=== PATIENT | male | born 1975 | race Caucasian/White ===

== ENCOUNTER 2024-07-09 10:55 | Emergency (ER) | payer SELFPAY ==
[2024-07-09 11:04] VITALS: BP 125/61; BMI 50.6
--- NOTE | 2024-07-09 12:43 | ED.GENMED ---
History of Present Illness
General
Chief Complaint: Skin Surface Trauma
Source: patient
Time Seen by Provider: 07/09/24 12:34
History of Present Illness
History of Present Illness:
49-year-old male with past medical history of atrial fibrillation, hypertension, diabetes presenting to the emergency department for evaluation after he was at work where he works at [employer] [facility] and excellently sustained a cut
on his left forearm from a piece of rusted metal. Patient was recommended to come to the ER for tetanus booster. No other injuries were sustained.
Past History
Past History
ED Past Medical History: Arrthythmia, HTN, IDDM and Other (Sleep apnea)
ED Past Surgical History: Appendectomy and Cardiac
Social History
Tobacco: Non-smoker
Alcohol: Occasional
Drug: None
Personal:
Living: with family
Employment: Employed
Family History
Family History: Diabetes and CAD
Review of Systems
Review of Systems
All Other Systems: ROS reviewed and negative except as documented in HPI and ROS
Phy Exam
Physical Exam
Physical Exam:
GENERAL: Alert , in no apparent distress
EYE: conjunctiva clear
Head: Normocephalic atraumatic
NECK: Supple,
ENT: mmm.
LUNGS: no acute respiratory distress
NEUROLOGICAL: Alert and oriented
SKIN: Warm and dry, abrasion to the dorsal left forearm measures less than 5 mm in size. No active bleeding
MUSCULOSKELETAL: well perfused.
PSYCH: Normal and appropriate interaction.
Scores
Heart Failure Risk
Heart Failure Risk Score: Not Applicable
Heart Score for Chest Pain Patients
STEMI patient?: Not applicable
Withdrawal Assessment of Alcohol
Withdrawal Assessment Completed?: Not applicable
Course
Orders/Labs/Results
Orders:
Orders
07/09/24 12:35
Tetanus/Diphth/Acelpertussis [Adacel] 0.5 ml IM .ONCE ONE
Vital Signs
Initial and Last Documented VS:
Initial Vital Signs
Temp Pulse Resp BP Pulse Ox
98.0 F 80 18 125/61 98
07/09/24 11:04 07/09/24 11:04 07/09/24 11:04 07/09/24 11:04 07/09/24 11:04
Last Documented Vital Signs
Temp Pulse Resp BP Pulse Ox
98.0 F 80 18 125/61 98
07/09/24 11:04 07/09/24 11:04 07/09/24 11:04 07/09/24 11:04 07/09/24 11:04
MDM/Problems Addressed
MDM/Problems Addressed:
49-year-old male presenting the ER for evaluation of abrasion sustained to the dorsal left forearm from jd piece of metal. Will update patient's tetanus which is what he came to the emergency department for. Patient is otherwise without any
emergent pathologies and stable for discharge.
*Pulse Oximetry
Patient hypoxic: no
*Critical Care Note
Total Time (30-74mins, 75-104mins- exclusive of procedures): Not Applicable
ED Attending Note
-
Portions of this chart may have been created with voice recognition software.� Occasional wrong word or��sound alike� substitutions may have occurred due to the inherent limitations of voice recognition software.
Discharge Plan
Departure
Patient Disposition: Home (Routine Discharge)
Date of Disposition: 07/09/24
Time of Disposition: 12:43
Patient with high blood pressure during this ER visit?: No
Discharge Problem:
Abrasion of forearm, left, Need for [id number] (Tdap) vaccine
Instructions: Wound Care (DC)
Prescriptions:
No Action
carvedilol 25 mg Tablet
50 mg PO BID
Patient Comments:
04/05/22: Pt confirmed he is taking carvedilol 25mg po four times daily
digoxin 250 mcg (0.25 mg) Tablet
250 mcg PO DAILY
levothyroxine 25 mcg Tablet
25 mcg PO DAILY@07
metformin 1,000 mg Tablet
1,000 mg PO BID@
diltiazem HCl 120 mg Tablet Extended Release 24 Hr
120 mg PO DAILY
rivaroxaban 20 mg Tablet
20 mg PO HS
insulin degludec [Tresiba FlexTouch U-100] 100 unit/mL (3 mL) Insulin Pen
25 unit SC HS
Ozempic 0.25 mg or 0.5 mg (2 mg/3 mL) Pen Injector
0.25 mg SC WEEKLY
Rx Instructions:
Monday
Regranex 0.01 % Gel
1 applic TOPICAL DAILY
Rx Instructions:
Left great toe.
Stand Alone Forms: Return to Work
Interventions
Interventions:
*Risk Screen - Suicide Last Done: 07/09/24 11:04
*Neglect/Abuse Screening Last Done: 07/09/24 11:07
Discharge Date and Time
Print Language: KOREAN
[2024-07-09] MEDS: ADACEL 0.5 ML IM (12:59)
== END 2024-07-09 13:22 | disposition home or self-care (01) ==
LOC: EMR 10:55
PROVIDERS: EMERGENCY PHYSICIAN Emergency Medicine; FAMILY PHYSICIAN Nurse Practitioner Family
DX: S50.812A Abrasion of left forearm, initial encounter (principal); W26.8XXA Contact with other sharp object(s), not elsewhere classified, initial encounter; Y99.0 Civilian activity done for income or pay; I48.91 Unspecified atrial fibrillation; I10 Essential (primary) hypertension; E11.9 Type 2 diabetes mellitus without complications; Z23 Encounter for immunization
CPT/HCPCS: 90471; 99282; 90715

== ENCOUNTER 2025-01-22 19:50 | Emergency (ER) | payer OTHER, SELFPAY ==
[2025-01-22 19:52] VITALS: BP 146/85
[2025-01-22 20:11] LABS: Hematocrit 38.7 % (39.0-52.0); Hemoglobin 12.6 g/dL (13.0-18.0); Mean Corp Hgb Conc. 32.6 g/dL (33.0-37.0); Mean Corpuscular Volume 88.6 fL (80.0-94.0); Nucleated Red Blood Cells % 0 % (-); Platelet Count 182 10^3/uL (130-400); Red Cell Dist. Width 13.1 % (11.5-14.5)
[2025-01-22 20:33] LABS: ALT (SGPT) 27 U/L (0-50); AST (SGOT) 23 U/L (17-59); Albumin 4.0 g/dl (3.5-5.0); Alkaline Phosphatase 75 U/L (38-126); Blood Urea Nitrogen 22 mg/dl (9-20); Calcium 9.2 mg/dl (8.4-10.2); Carbon Dioxide 23 mmol/L (22-30); Chloride 105 mmol/L (98-107); Glucose 290 mg/dl (70-99); Potassium 4.4 mmol/L (3.5-5.1); Sodium 134 mmol/L (135-145); Total Protein 6.8 g/dl (6.3-8.2); eGFR > 60.00
[2025-01-22 22:00] VITALS: BP 156/102
[2025-01-22] MEDS: CLEOCIN 450 MG PO (23:40)
--- NOTE | 2025-01-23 00:18 | ED.GENMED ---
History of Present Illness
General
Chief Complaint: Extremity Pain (non-traumatic)
Source: patient
Exam Limitations: none
Time Seen by Provider: 01/22/25 22:43
Nursing documentation reviewed up to this point in time: agreed with
History of Present Illness
History of Present Illness:
Patient to ED with complaint of draining wouods to RLE. States he has an appointment scheduled in 2 weeks wit the wound center but reports he is noticing some redness and increased drainage. Has small ulceraton to right heel and right álvarez. No
fever/chills. Brought self to ED for eval.
Past History
Past History
ED Past Medical History: Arrthythmia, HTN, IDDM and Other (Sleep apnea)
ED Past Surgical History: Appendectomy and Cardiac
Social History
Tobacco: Non-smoker
Alcohol: Occasional
Drug: None
Personal:
Living: with family
Employment: Employed
Family History
Family History: Diabetes and CAD
Review of Systems
Review of Systems
Allergies reviewed?: Yes
All Other Systems: ROS reviewed and negative except as documented in HPI and ROS
Constitutional: Reports no symptoms
EENT: Reports no symptoms
Respiratory: Reports no symptoms
Cardiac: Reports no symptoms
ABD/GI: Reports no symptoms
Musculoskeletal: Reports other (rLE neurovasc intact)
Skin: Reports other (1cm superficial ulceration right medial heel, 1.5cm ulceration right álvarez. Both draining small amt of clear fluid, culture obtained. Minimal surrounding erythema.)
Neurological: Reports no symptoms
Psychiatric: Reports no symptoms
Phy Exam
General Physical Exam
General Presentation: well appearing and no apparent distress
General age: appears stated age
General Skin: warm and dry
General Habitus: normal
General Mental: alert
Musculoskeletal Exam
Musculoskeletal Exam: full ROM and neuro vasc intact
Skin Exam
Skin Exam: normal color, warm/dry and other (1cm superficial ulceration right medial heel, 1.5cm ulceration right álvarez. minimal surrouonding erythema. No discomfort. )
Psychiatric Exam
Psychiatric Exam: normal mood/affect
Course
Orders/Labs/Results
Orders:
Orders
01/22/25 20:03
Complete Blood Count/With Diff Urgent
Comprehensive Metabolic Panel Urgent
01/22/25 23:08
Clindamycin HCl [Cleocin] 450 mg PO NOW STA
01/22/25 23:45
Wound Culture [Wound/Abscess/Other Culture] Urgent
MATT Source: Heel
Specimen Description: Right
Date Specimen was Collected: 01/22/25
Time Specimen was Collected: 23:21
Wound Culture [Wound/Abscess/Other Culture] Urgent
MATT Source: Leg
Specimen Description: Right
Date Specimen was Collected: 01/22/25
Time Specimen was Collected: 23:22
Abnormal Lab Results
01/22/25
20:03
RBC 4.37 L 10^6/uL
(4.70-6.10)
Hgb 12.6 L g/dL
(13.0-18.0)
Hct 38.7 L %
(39.0-52.0)
MCHC 32.6 L g/dL
(33.0-37.0)
MPV 12.2 H fL
(7.4-10.4)
Absolute Monos (auto) 1.0 H 10^3/uL
(0.1-0.6)
Monocytes % 10.2 H %
(1.7-9.3)
Sodium 134 L mmol/L
(135-145)
BUN 22 H mg/dl
(9-20)
Glucose 290 H mg/dl
(70-99)
01/22/25 20:03
01/22/25 20:03
Vital Signs
Initial and Last Documented VS:
Initial Vital Signs
Temp Pulse Resp BP Pulse Ox
98.7 F 76 18 146/85 97
01/22/25 19:52 01/22/25 19:52 01/22/25 19:52 01/22/25 19:52 01/22/25 19:52
Last Documented Vital Signs
Temp Pulse Resp BP Pulse Ox
98.5 F 72 20 156/102 97
01/22/25 22:00 01/22/25 22:00 01/22/25 22:00 01/22/25 22:00 01/23/25 00:20
*Pulse Oximetry
SaO2: 97
Oxygen Mode of Delivery: Room air
Patient hypoxic: no
*Critical Care Note
Total Time (30-74mins, 75-104mins- exclusive of procedures): Not Applicable
Update Note
Update Note:
Patient to ED after noticing increasing drainage to right heel and álvarez ulcers. Draining small amt of clear fluid. Culutre obtaine. He denies pain. RLE neurovasc. intact. Mild surrounding erythema. He has not been on antibiotics for this
wouonds. Has appt with wound center in [address] on clindamyin, first dose given in ED. He will call wound center in AM to move up appt. He is afebrile and stable for discharge. He was given instructions on s/s to return to ED and he is
agreeable to plan.
ED Attending Note
-
Portions of this chart may have been created with voice recognition software.� Occasional wrong word or��sound alike� substitutions may have occurred due to the inherent limitations of voice recognition software.
Discharge Plan
Departure
Patient Disposition: Home (Routine Discharge)
Date of Disposition: 01/22/25
Time of Disposition: 23:09
Patient with high blood pressure during this ER visit?: No
Condition: Good
Covid-19: Not Applicable
Discharge Problem:
Cellulitis of leg
Instructions: Wound Care (DC), Cellulitis (Skin Infection), Adult (DC)
Prescriptions:
New
clindamycin HCl [Cleocin HCl] 150 mg capsule
450 mg PO Q8H 10 Days Qty: 90 0RF
No Action
carvedilol 25 mg Tablet
50 mg PO BID
Patient Comments:
04/05/22: Pt confirmed he is taking carvedilol 25mg po four times daily
digoxin 250 mcg (0.25 mg) Tablet
250 mcg PO DAILY
levothyroxine 25 mcg Tablet
25 mcg PO DAILY@07
metformin 1,000 mg Tablet
1,000 mg PO BID@
diltiazem HCl 120 mg Tablet Extended Release 24 Hr
120 mg PO DAILY
rivaroxaban 20 mg Tablet
20 mg PO HS
insulin degludec [Tresiba FlexTouch U-100] 100 unit/mL (3 mL) Insulin Pen
25 unit SC HS
Ozempic 0.25 mg or 0.5 mg (2 mg/3 mL) Pen Injector
0.25 mg SC WEEKLY
Rx Instructions:
Monday
Regranex 0.01 % Gel
1 applic TOPICAL DAILY
Rx Instructions:
Left great toe.
Referrals:
W[facility] Center [Outside] - Call in 1-3 days for appt
Activity Restrictions/Additional Instructions:
return to the emergency department immediately for any changes in/worsening of your symptoms
Interventions
Interventions:
*Risk Screen - Suicide Last Done: 01/22/25 19:52
*General Assessment Last Done: 01/22/25 19:52
*Neglect/Abuse Screening Last Done: 01/22/25 23:50
*ED- Fall Risk Assessment Last Done: 01/22/25 23:50
*ED COVID-19 Vaccine History Last Done: 01/22/25 23:50
*Nursing Disposition Last Done: 01/22/25 23:50
ED-Skin Assessment Last Done: 01/22/25 23:40
ED-Musculoskeletal Assessment Last Done: 01/22/25 23:40
Discharge Date and Time
Discharge Date/Time: 01/22/25 23:50
Print Language: HAITIAN
== END 2025-01-22 23:50 | disposition home or self-care (01) ==
LOC: EMR 19:50
PROVIDERS: Emergency Medicine; EMERGENCY PHYSICIAN Emergency Medicine; FAMILY PHYSICIAN Family Medicine
DX: L03.115 Cellulitis of right lower limb (principal); I10 Essential (primary) hypertension; E11.9 Type 2 diabetes mellitus without complications; G47.30 Sleep apnea, unspecified; Z82.49 Family history of ischemic heart disease and other diseases of the circulatory system; Z83.3 Family history of diabetes mellitus; Z90.49 Acquired absence of other specified parts of digestive tract
CPT/HCPCS: 99283; 80053; 85025; 87070; 87205